=== PATIENT | female | born 1940 | race Caucasian/White ===

== ENCOUNTER 2023-04-12 16:01 | Emergency (ER) | payer MEDICARE, BC ==
[2023-04-12] MEDS ORDERED: Furosemide 40 MG/4 ML VIAL IVPUSH ONE (17:28)
[2023-04-12 17:31] LABS: BASOPHILS ABSOLUTE AUTO 0.04 K/uL (0.00-0.10); BASOPHILS PERCENT AUTO 0.2 % (0.1-1.3); HEMATOCRIT 35.9 % (34.3-46.0); HEMOGLOBIN 12.2 g/dL (11.2-15.5); IMMATURE GRAN ABSOLUTE AUTO 0.12 K/uL (0.00-0.23); IMMATURE GRAN PERCENT AUTO 0.7 % (0.0-0.7); LYMPHOCYTES ABSOLUTE AUTO 0.66 K/uL (0.8-3.3); LYMPHOCYTES PERCENT AUTO 3.7 % (11.4-47.7); MEAN CORPUSCULAR HEMOGLOBIN 31.6 pg (31.6-35.5); MONOCYTES ABSOLUTE AUTO 1.32 K/uL (0.20-0.90); MONOCYTES PERCENT AUTO 7.4 % (3.3-12.6); NEUTROPHILS ABSOLUTE AUTO 15.73 K/uL (1.0-7.6); PLATELET COUNT,PLT 238 K/uL (130-375); RED BLOOD CELL COUNT 3.86 M/uL (3.77-5.24); WHITE BLOOD CELL COUNT,WBC 17.9 K/uL (3.2-11.0)
[2023-04-12] MEDS ORDERED: Ondansetron 4 MG/2 ML SDV IVPUSH ONE (17:34)
[2023-04-12] MEDS ORDERED: Scopalamine 1mg/3day Transdermal Patch TRDERM ONE (17:41)
[2023-04-12 17:47] LABS: PROTHROMBIN TIME 28.3 sec (9.2-10.6)
[2023-04-12 17:48] LABS: CALCIUM 8.7 mg/dL (8.5-10.1); EST CRCL DRUG DOSING (CG) 34.9 mL/min; POTASSIUM,K 3.8 mmol/L (3.6-5.2)
[2023-04-12] MEDS ORDERED: Ampicillin/Sulbactam Na 3 GM in Sodium Chloride 0.9% 100 ML IV SCH (18:00)
[2023-04-12 18:09] LABS: INFLUENZA A NAA NEGATIVE (NEGATIVE); INFLUENZA B NAA NEGATIVE (NEGATIVE); RESPIRATORY SYNCYTIAL VIR NAA NEGATIVE (NEGATIVE)
[2023-04-12 18:12] LABS: CORONAVIRUS COVID-19 NAA POSITIVE (NEGATIVE)
[2023-04-12] MEDS ORDERED: Dextrose 5%-0.9% NaCl 1,000 ML IV SCH (19:30)
== END 2023-04-12 22:40 ==
LOC: JP.ED 16:01
DX: U07.1 COVID-19 (principal); J18.8 Other pneumonia, unspecified organism; C56.9 Malignant neoplasm of unspecified ovary; G30.9 Alzheimer's disease, unspecified; I50.9 Heart failure, unspecified; T17.800A Unspecified foreign body in other parts of respiratory tract causing asphyxiation, initial encounter; Z88.2 Allergy status to sulfonamides
CPT/HCPCS: 0241U; 36415; 70450; 71250; 74176; 80048; 83880; 84145; 85025; 85610; 86140; 93005; 96365; 96375; 99285; A9270; J0295; J2405; J3490